=== PATIENT | female | born 1935 | race Caucasian/White ===

== ENCOUNTER 2016-05-25 05:45 | Inpatient (IN) | payer MEDICARE, OTHER ==
[~2016-05-25 05:45] MED LIST: CALTRATE 600 +1 EAC2 PO; CENTRUM SILVER1 EAC3 PO; CHLORTHALIDONE25 M1 PO; FLONASE ALLERG9.9 ML; GLUCOPHAGE500 M3 PO; LEVO-T50 MCG PO; LOVAZA1 GM/CAP PO; METOPROLOL TART25 M1 PO; MUPIROCIN22 G2 TP; PREVACID15 M2 PO; PROBIOTIC1 EA10 PO; TYLENOL EXTRA500 M1 PO; [UNRECOGNIZED DRUG - OTHER] PO
[2016-05-26 05:52] LABS: BASO % 0.1 % (0-2); EOS % 0.1 % (0-7); HCT-HEMATOCRIT 37.3 % (34.0-49.0); HGB-HEMOGLOBIN 12.5 gm/dl (12.0-15.5); IMMATURE GRANULOCYTES ABSOLUTE 0.05 tho/cmm (0-0.03); IMMATURE GRANULOCYTES PERCENT 0.3 % (0-0.3); LYMPH % 17.6 % (20-45); LYMPH ABSOLUTE COUNT 2.9 tho/cmm (0.8-4.5); MCHC MEAN CORPUSCULAR HGB CONC 33.5 % (32.0-36.0); MCV (MEAN CELL VOLUME) 83.4 fl (82.0-96.0); MEAN PLATELET VOLUME 10.9 cmc (9.4-12.4); MONO % 6.1 % (0-12); NEUTROPHIL ABSOLUTE COUNT 12.6 tho/cmm (1.6-8.0); NEUTROPHIL-AUTOMATED 12.6 tho/cmm (1.6-8.0); NEUTROPHILS % 75.8 % (40-80); PLATELET COUNT 194 tho/cmm (150-450); RED BLOOD COUNT 4.47 mil/cmm (4.00-5.20); RED CELL DISTRIBUTION WIDTH 13.5 % (12.4-16.4); WHITE BLOOD COUNT 16.6 tho/cmm (4.0-10.0)
[2016-05-26] MEDS ORDERED: ASPIRIN EC81 MG PO (11:10)
[2016-05-26] MEDS ORDERED: ROXICODONE5 M2 PO (11:11)
[2016-05-26] MEDS ORDERED: ULTRAM50 M1 PO (11:12)
[2016-05-26] MEDS ORDERED: TYLENOL325 M2 PO (11:13)
== END 2016-05-26 15:10 | DRG 470 ==
LOC: SHSB 05:45 → ORE 07:32 → PACU 09:11 → 5EA 10:00
PROVIDERS: Hospitalist; ADMIT Orthopaedic Surgery Foot and Ankle Surgery
PROC: 0SRB02A Replacement of Left Hip Joint with Metal on Polyethylene Synthetic Substitute, Uncemented, Open Approach (ICD-10-PCS; principal; 2016-05-25)
DX: M16.12 Unilateral primary osteoarthritis, left hip (principal); E11.9 Type 2 diabetes mellitus without complications; I10 Essential (primary) hypertension; E78.5 Hyperlipidemia, unspecified
CPT/HCPCS: C1776; J0171; J0690; J1815; J2270; J2795